=== PATIENT | female | born 1990 | race Caucasian/White ===

== ENCOUNTER 2017-12-22 20:38 | Emergency (ER) | payer OTHER ==
[~2017-12-22] VITALS: Ht 162.6 cm; Wt 77.3 kg
[2017-12-22 22:19] VITALS: BP 128/87
[2017-12-22] MEDS ORDERED: HYDROCODONE/ACETAMINOPHEN 5-325 MG TABLET PO ONE (22:45)
[2017-12-22] MEDS ORDERED: KETOROLAC TROMETHAMINE 60 MG/2 ML VIAL IM ONE (22:45)
== END 2017-12-22 22:58 | disposition home or self-care (01) ==
LOC: EMS 20:39
DX: S20.212A Contusion of left front wall of thorax, initial encounter (principal); W18.40XA Slipping, tripping and stumbling without falling, unspecified, initial encounter; Y93.02 Activity, running; Y92.89 Other specified places as the place of occurrence of the external cause; Y99.8 Other external cause status
CPT/HCPCS: 71100; 96372; 99284; J1885; 99283

== ENCOUNTER 2018-01-06 20:19 | Emergency (ER) | payer OTHER ==
[~2018-01-06] VITALS: Ht 162.6 cm; Wt 77.0 kg
[2018-01-06] MEDS ORDERED: CefTRIAXone SODIUM 1 GM/VIAL IM ONE (22:15)
[2018-01-06] MEDS ORDERED: ACETAMINOPHEN 500 MG TABLET PO ONE (22:15)
[2018-01-06] MEDS ORDERED: LIDOCAINE HCL/PF 1% 2 ML VIAL IM ONE (22:15)
[2018-01-06 23:22] VITALS: BP 102/52
== END 2018-01-06 23:30 | disposition home or self-care (01) ==
LOC: EMS 20:20
DX: N61.0 Mastitis without abscess (principal); Z91.018 Allergy to other foods
CPT/HCPCS: 96372; 99283; J0696; J3490